=== PATIENT | male | born 2000 | race Two or more races ===

== ENCOUNTER 2024-06-14 17:43 | Emergency (ER) | payer OTHER ==
[~2024-06-14] VITALS: Ht 172.7 cm; Wt 59.1 kg
[2024-06-14 19:32] VITALS: BP 131/74; PULSE 60; RESP 16; TEMP 98.4; O2SAT 99
[2024-06-14] MEDS: KETOROLAC TROMETHAMINE 30 MG/ML VIAL IM ONE (22:30)
[2024-06-14] MEDS: TraMADol HCL 50 MG TABLET PO ONE (22:30)
== END 2024-06-14 23:09 | disposition home or self-care (01) ==
LOC: EMS 17:43
DX: S83.8X2A Sprain of other specified parts of left knee, initial encounter (principal); X50.1XXA Overexertion from prolonged static or awkward postures, initial encounter; Y93.66 Activity, soccer; Y92.89 Other specified places as the place of occurrence of the external cause; Y99.8 Other external cause status
CPT/HCPCS: 99283; 29505; 73564; 96372; J1885